=== PATIENT | male | born 1960 | race Two or more races ===

== ENCOUNTER 2018-06-03 19:59 | Emergency (ER) | payer SELFPAY ==
[2018-06-03 20:46] VITALS: BP 149/88; PULSE 82; RESP 18; TEMP 98; O2SAT 98
[2018-06-03 20:48] VITALS: BMI 30.8
[2018-06-03] MEDS ORDERED: Tdap Vaccine 0.5 ml Vial (10-64 yrs) IM ONE (21:07)
--- NOTE | 2018-06-03 21:42 | ED PDOC ---
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 He states pain is localized to the laceration site and that he has no limitation of motion. Patient has taken no medication prior to arrival at ED and cannot recall the last time he had a tetanus vaccination. Otherwise: (-) numbness, (-) other injury. PMD: Onur Mcmillan Past Medical History Reviewed: Historical Data, Nursing Documentation, Vital Signs Vital Signs: Last Vital Signs Temp 98 F 06/03/18 20:46 Pulse 82 06/03/18 20:46 Resp 18 06/03/18 20:46 BP 149/88 06/03/18 20:46 Pulse Ox 98 06/03/18 20:46 - Medical History PMH: No Chronic Diseases - Surgical History Surgical History: No Surg Hx - Family History Family History: States: Unknown Family Hx - Immunization History Hx Tetanus Toxoid Vaccination: No - Allergies Allergies/Adverse Reactions: Allergies Allergy/AdvReac Type Severity Reaction Status Date / Time No Known Allergies Allergy Verified 06/03/18 20:48 Review of Systems ROS Statement: Except As Marked, All Systems Reviewed And Found Negative Musculoskeletal: Positive for: Other (left hand laceration) Skin: Positive for: Other Physical Exam - Reviewed Nursing Documentation Reviewed: Yes Vital Signs Reviewed: Yes - Physical Exam Comments: GENERAL APPEARANCE: Patient is awake, alert, oriented x 3, in no acute distress. SKIN: Warm, dry; (-) cyanosis. CHEST AND RESPIRATORY: (-) rales, (-) rhonchi, (-) wheezes; breath sounds equal bilaterally. HEART AND CARDIOVASCULAR: (-) irregularity NECK: Supple, FROM EXTREMITIES: (+) Middle phalanx palmar aspect of left 4th digit has 1 cm U- shaped skin laceration with no active bleeding, erythema, ecchymosis, or edema. (+) Full ROM to all digits; Sensation and capillary refill intact. Remainder of hand, wrist, and upper extremity nontender with normal ROM. NEURO AND PSYCH: Mental status as above. Gait: steady. Speech: clear. - ECG O2 Sat by Pulse Oximetry: 98 (RA) Pulse Ox Interpretation: Normal Medical Decision Making Medical Decision Making: Initial Time: 21:05 Initial Impression: Hand laceration Initial plan: --Laceration repair with dermabond --Adacel 10-64 yrs 0.5 ml IM 21:50 Patient left ED prior to treatment. Patient did not receive wound closure or tetanus vaccine. Scribe Attestation: Documented by Randall Bishop, acting as a scribe for Gricelda Rivas Provider Scribe Attestation: All medical record entries made by the Scribe were at my direction and personally dictated by me. I have reviewed the chart and agree that the record accurately reflects my personal performance of the history, physical exam, medical decision making, and the department course for this patient. I have also personally directed, reviewed, and agree with the discharge instructions and disposition. Disposition - Clinical Impression Clinical Impression: Finger laceration - Patient ED Disposition Is Patient to be Admitted: No (patient left before treatment complete - wound repair was not performed.) - Disposition Disposition: Left W/O Treatment Disposition Time: 21:50 Condition: UNKNOWN
== END 2018-06-03 21:52 | disposition left against medical advice (07) ==
LOC: H.ER 19:59
DX: S61.215A Laceration without foreign body of left ring finger without damage to nail, initial encounter (principal); W25.XXXA Contact with sharp glass, initial encounter; Y92.89 Other specified places as the place of occurrence of the external cause